=== PATIENT | female | born 1975 | race African-American/Black ===

== ENCOUNTER 2021-06-06 17:32 | Emergency (ER) | payer OTHER ==
[~2021-06-06] VITALS: Ht 160 cm; Wt 81.8 kg
--- NOTE | 2021-06-06 19:36 | RAD ---
XR CHEST 1V History: Reason: SOB / Spl. Instructions: / History: Comparison: None. Findings: Mild multifocal ill-defined opacities bilaterally. No pleural effusion. No pneumothorax. Normal heart size. Impression: 1. Mild multifocal ill-defined opacities bilaterally, concerning for pneumonia including viral pneum onia. Electronically signed by: Gab Heck DO (06/06/2021 7:33 PM) [facility] [place]
[2021-06-06 19:54] LABS: BILIRUBIN,URINE NEG (NEG); CLARITY,URINE CLEAR; COLOR,URINE YELLOW; GLUCOSE,URINE NEG (NEG); NITRITE,URINE NEG (NEG)
[2021-06-06 19:55] LABS: BACTERIA,URINE FEW /HPF (0-FEW); RBC,URINE 0 /HPF (0-2); WBC,URINE 0 /HPF (0-4)
[2021-06-06 19:56] LABS: SQUAMOUS EPITHELIAL CELL,UR FEW /LPF
[2021-06-06 20:51] LABS: BASO % 0 % (0-3); EOS % 1 % (0-3); HEMATOCRIT 41.1 % (36.0-47.0); HEMOGLOBIN 13.7 g/dL (12.0-15.5); LYMPH # 1.7 x10^3/uL (1.0-4.8); LYMPH % 31 % (24-48); MEAN CORPUSCULAR HEMOGLOBIN 31 pg (25-35); MEAN CORPUSCULAR HGB CONC 34 g/dL (31-37); MEAN CORPUSCULAR VOLUME 94 fL (79-100); MONO # 0.5 x10^3/uL (0.0-1.1); MONO % 10 % (0-9); NEUT # 3.1 x10^3uL (1.8-7.7); NEUT % 57 % (31-73); PLATELET COUNT 374 x10^3/uL (140-400); RED BLOOD COUNT 4.37 x10^6/uL (3.50-5.40); WHITE BLOOD COUNT 5.5 x10^3/uL (4.0-11.0)
[2021-06-06 20:59] LABS: CREATININE 0.8 mg/dL (0.6-1.0); GFR 93.9; POTASSIUM 3.7 mmol/L (3.5-5.1)
--- NOTE | 2021-06-06 21:05 | EKG ---
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
[2021-06-06] MEDS ORDERED: levoFLOXacin 500 MG TABLET PO ONE (22:00)
[2021-06-06] MEDS ORDERED: LEVO500T8 PO (22:12)
--- NOTE | 2021-06-06 22:14 | PHYS DOC ---
Past History Past Surgical History: Hysterectomy Additional Past Surgical Histo: lithotripsy Alcohol Use: None Adult General Chief Complaint Chief Complaint: MULTIPLE COMPLAINTS HPI HPI Patient is a 45-year-old female who was diagnosed with Covid 10 days ago who presents to the emergency department with a chief complaint of sharp chest pain during inspiration and expiration and cough. States this started about 2 days ago. Denies any other recent traumas, travels, illnesses, fevers, abdominal pain, nausea, vomiting, dysuria, hematuria, blood in the stool or diarrhea. States she is otherwise eating and drinking normally. States he is making urine and stool normally for her. Review of Systems Review of Systems Review of systems otherwise unremarkable except noted in HPI Current Medications Current Medications Current Medications Medications (Trade) Dose Ordered Sig/Melany Start Time Stop Time Status Last Admin Dose Admin Levofloxacin (Levaquin) 500 mg 1X ONCE 06/06/21 22:00 06/06/21 22:01 UNV Allergies Allergies Allergies Coded Allergies Type Severity Reaction Last Updated Verified Sulfa (Sulfonamide Antibiotics) Allergy Unknown 06/06/21 Yes Physical Exam Physical Exam Constitutional: Well developed, well nourished, no acute distress, non-toxic appearance. [] HENT: Normocephalic, atraumatic, bilateral external ears normal, oropharynx moist, no oral exudates, nose normal. [] Eyes: conjunctiva normal, no discharge. [] Neck: Normal range of motion, no tenderness, supple, no stridor. [] Cardiovascular:Heart rate regular rhythm, no murmur [] Lungs & Thorax: Mild bilateral rhonchi with no wheeze, and no increased work of breathing Abdomen: soft, no tenderness, no masses, no pulsatile masses. [] Skin: Warm, dry, no erythema, no rash. [] Extremities: No tenderness, ROM intact, no edema. [] Neurologic: Alert and oriented X 3, no focal deficits noted. [] Psychologic: Affect normal, judgement normal, mood normal. [] Current Patient Data Vital Signs Vital Signs Date Time Temp Pulse Resp B/P (MAP) Pulse Ox O2 Delivery O2 Flow Rate FiO2 06/06/21 20:22 90 18 117/73 (88) 99 Room Air 06/06/21 18:27 98.4 Lab Results Laboratory Tests Test 06/06/21 19:01 06/06/21 19:27 06/06/21 20:34 Urine Collection Type Unknown Urine Color Yellow Urine Clarity Clear Urine pH 6.5 Urine Specific [place] 1.025 Urine Protein Neg (NEG-TRACE) Urine Glucose (UA) Neg mg/dL (NEG) Urine Ketones (Stick) 40 mg/dL (NEG) Urine Blood Neg (NEG) Urine Nitrite Neg (NEG) Urine Bilirubin Neg (NEG) Urine Urobilinogen Dipstick 1.0 mg/dL (0.2 mg/dL) Urine Leukocyte Esterase Neg (NEG) Urine RBC 0 /HPF (0-2) Urine WBC 0 /HPF (0-4) Urine Squamous Epithelial Cells Few /LPF Urine Bacteria Few /HPF (0-FEW) POC Urine HCG, Qualitative hcg negative (Negative) White Blood Count 5.5 x10^3/uL (4.0-11.0) Red Blood Count 4.37 x10^6/uL (3.50-5.40) Hemoglobin 13.7 g/dL (12.0-15.5) Hematocrit 41.1 % (36.0-47.0) Mean Corpuscular Volume 94 fL (79-100) Mean Corpuscular Hemoglobin 31 pg (25-35) Mean Corpuscular Hemoglobin Concent 34 g/dL (31-37) Red Cell Distribution Width 13.0 % (11.5-14.5) Platelet Count 374 x10^3/uL (140-400) Neutrophils (%) (Auto) 57 % (31-73) Lymphocytes (%) (Auto) 31 % (24-48) Monocytes (%) (Auto) 10 % (0-9) H Eosinophils (%) (Auto) 1 % (0-3) Basophils (%) (Auto) 0 % (0-3) Neutrophils # (Auto) 3.1 x10^3uL (1.8-7.7) Lymphocytes # (Auto) 1.7 x10^3/uL (1.0-4.8) Monocytes # (Auto) 0.5 x10^3/uL (0.0-1.1) Eosinophils # (Auto) 0.0 x10^3/uL (0.0-0.7) Basophils # (Auto) 0.0 x10^3/uL (0.0-0.2) Sodium Level 137 mmol/L (136-145) Potassium Level 3.7 mmol/L (3.5-5.1) Chloride Level 101 mmol/L (98-107) Carbon Dioxide Level 28 mmol/L (21-32) Anion Gap 8 (6-14) Blood Urea Nitrogen 11 mg/dL (7-20) Creatinine 0.8 mg/dL (0.6-1.0) Estimated GFR (Cockcroft-Gault) 93.9 Glucose Level 91 mg/dL (70-99) Calcium Level 9.0 mg/dL (8.5-10.1) Troponin I Quantitative < 0.017 ng/mL (0-0.055) EKG EKG [] Radiology/Procedures Radiology/Procedures [] Heart Score C/O Chest Pain: Yes HEART Score for Chest Pain: HEART Score for Chest Pain Response (Comments) Value History Slighlty/Non-Suspicious 0 ECG Normal 0 Age >45 - < 65 1 Risk Factors 1 or 2 Risk Factors 1 Troponin < Normal Limit 0 Total 2 Risk Factors: Risk Factors: DM, Current or recent (<one month) smoker, HTN, HLP, family history of CAD, obesity. Risk Scores: Risk Factors: DM, Current or recent (<one month) smoker, HTN, HLP, family history of CAD, obesity. Course & Med Decision Making Course & Med Decision Making Patient is a 45-year-old female who presents with pleuritic chest pain Vital signs not concerning. Physical exam noted above. EKG noted above with no STEMI. Troponin normal. Chest x-ray with mild multifocal opacities suggestive of atypical pneumonia. Started on antibiotics in the ED. Given steroids. Given pain medicine. Given cough medicine. Discussed management at home with symptoms. Advised to call primary care physician in the morning to update on ED visit. Gave return precautions to the ED. Patient very grateful, verbalized understanding and agreed with plan of discharge. [] Dragon Disclaimer Dragon Disclaimer This electronic medical record was generated, in whole or in part, using a voice recognition dictation system. Departure Departure: Impression: Primary Impression: Atypical pneumonia Additional Impression: Pleurisy Disposition: 01 HOME / SELF CARE / HOMELESS Condition: GOOD Referrals: BARBARA DOS SANTOS DO (PCP) Patient Instructions: Pleurisy, Pneumonia, Adult Additional Instructions: Thank you for coming into the emergency department tonight and allowing us to ta ke care of you. Please read the attached information carefully to go over what we discussed. Please begin a Tylenol, ibuprofen and Benadryl regimen as we discussed as well as the [id number] cough medicine. Please use the cough medicine given to you in the emergency department 1 daily over the next couple of days. Please take your antibiotics as prescribed until gone. Please call your primary care physician first thing in the morning to update on ED visit and set up a follow-up as soon as possible. Please come back to the ED with new or concerning symptoms as discussed. Scripts Levofloxacin (LEVOFLOXACIN) 500 Mg Tablet 1 TAB PO DAILY for PNA for 6 Days, #6 TAB Prov: SHARON ENCARNACION MD 06/06/21 Problem Qualifiers SHARON ENCARNACION MD Jun 06, 2021 22:14
[2021-06-06] MEDS ORDERED: DEXAMETHASONE 4 MG TABLET PO ONE (22:15)
[2021-06-06] MEDS ORDERED: guaiFENesin/CODEINE 100mg/10mg 5 ML LIQUID PO PRN (22:15)
[2021-06-06] MEDS ORDERED: guaiFENesin/CODEINE 100mg/10mg 5 ML LIQUID ONE (22:19)
[2021-06-06] MEDS ORDERED: levoFLOXacin 500 MG TABLET ONE (22:19)
[2021-06-06] MEDS ORDERED: DEXAMETHASONE 4 MG TABLET ONE (22:19)
[2021-06-06 22:30] VITALS: BP 116/68
== END 2021-06-06 22:35 | disposition home or self-care (01) ==
LOC: ER 17:32
DX: U07.1 COVID-19 (principal); J18.9 Pneumonia, unspecified organism; R09.1 Pleurisy; Z88.2 Allergy status to sulfonamides
CPT/HCPCS: 36415; 71045; 80048; 81001; 81025; 84484; 85025; 93005; 96374; 99285; C9803; J3010; J8540; U0003